=== PATIENT | female | born 1975 | race Caucasian/White ===

== ENCOUNTER 2019-10-16 18:09 | Observation (INO) ==
[2019-10-16] MEDS ORDERED: SODIUM CHLORIDE 0.9% 1000ML 1,000 ML IV ONE (18:48)
[2019-10-16 18:50] LABS: Basophils # (auto) 0.06 K/uL (0-0.2); Basophils % (auto) 0.8 %; Eosinophils # (auto) 0.43 K/uL (0-0.5); Eosinophils % (auto) 5.6 %; Hematocrit (blood only) 39.6 % (37-47); Hemoglobin 13.9 g/dL (12.0-16.0); Immature Granulocytes # (auto) 0.02 K/uL (0.00-0.02); Immature Granulocytes % (auto) 0.3 %; Lymphocytes # (auto) 2.61 K/uL (1.2-3.4); Lymphocytes % (auto) 33.7 %; Mean Corpuscular Hemoglobin 32.6 pg (25-34); Mean Corpuscular Hgb Conc 35.1 g/dL (32-36); Mean Platelet Volume 9.4 fL (7.4-10.4); Monocytes # (auto) 0.69 K/uL (0.11-0.59); Monocytes % (auto) 8.9 %; Neutrophils # (auto) 3.93 K/uL (1.4-6.5); Neutrophils % (auto) 50.7 %; Platelet Count 335 K/uL (130-400); RDW Coefficient of Variation 12.8 % (11.5-14.5); RDW Standard Deviation 43.2 fL (36.4-46.3); Red Blood Count 4.26 M/uL (4.2-5.4); White Blood Count 7.74 K/uL (4.8-10.8)
[2019-10-16 19:01] LABS: Partial Thromboplastin Time 26.8 Seconds (21.0-31.0)
[2019-10-16] MEDS ORDERED: OPTIRAY 320 125ml IV PRN (19:05)
--- NOTE | 2019-10-16 19:12 | CT Scan Report ---
CT angio head w con HISTORY: aphasia eval for cva TECHNIQUE: Multiaxial CT angiography of the head was performed IV contrast: None. Maximum intensit y projection images were also obtained. A dose lowering technique was utilized adhering to the princ iplRadha. COMPARISON: None. FINDINGS: There is no mass, hematoma, midline shift, or acute infarct. Visualized intracranial internet merchant al carotid arteries, distal vertebral arteries, and basilar artery are widely patent. There is no sig nificant stenosis, occlusion, or aneurysm seen within the bilateral ACAs, MCAs, or mirror inspector. IMPRESSION: No significant stenosis, occlusion, or aneurysm within the [place]. ACT 112: Negative or not required by law. The above report was generated using voice recognition software. It may contain grammatical, syntax or spelling errors. Electronically signed by: Stanton Justice M.D. 10/16/2019 7:10 PM
[2019-10-16 19:13] LABS: Alanine Aminotransferase 26 U/L (12-78); Albumin Level 4.6 gm/dl (3.4-5.0); Aspartate Aminotransferase 13 U/L (15-37); Blood Urea Nitrogen 14 mg/dl (7-18); Calcium 9.7 mg/dl (8.5-10.1); Carbon Dioxide 28 mmol/L (21-32); Chloride 104 mmol/L (98-107); Creatinine Clr Calc Pharmacy 78.9 ml/min; Est GFR (African American) 72.6; Est GFR (Non-African American) 62.6; Glucose 99 mg/dl (70-99); Potassium 3.3 mmol/L (3.5-5.1); Sodium 138 mmol/L (136-145)
--- NOTE | 2019-10-16 19:14 | CT Scan Report ---
CT head/brain wo con CT DOSE: HISTORY: Mental status change aphasia eval for cva TECHNIQUE: Multiaxial CT images of the head were performed without the use of intravenous contrast. A dose lowering technique was utilized adhering to the principles of ALARA. Comparison: None. Findings: The paranasal sinuses and mastoid air cells are clear. The calvarium and skull base are int act. The ventricles and sulci are within normal limits. There is no mass, hematoma, midline shift, or acute infarct. Impression: No acute intracranial abnormality. ACT 112: Negative or not required by law. The above report was generated using voice recognition software. It may contain grammatical, syntax or spelling errors. Electronically signed by: Stanton Justice M.D. 10/16/2019 7:12 PM
--- NOTE | 2019-10-16 19:15 | CT Scan Report ---
CT angio neck with con HISTORY: Mental status change aphasia eval for cva TECHNIQUE: Multiaxial CT angiography of the neck was performed IV contrast: None. All measurements w ere calculated based on NASCET criteria. Maximum intensity projection images were also obtained. A dose lowering technique was utilized adhering to the principles of ALARA. COMPARISON STUDY: None. FINDINGS: The aortic arch and proximal great vessels are widely patent. There is no significant sten osis, occlusion, or dissection identified within the bilateral common carotid, internal carotid, or v ertebral arteries. IMPRESSION: No significant stenosis, occlusion, or dissection identified within the carotid or vertebral arteries . ACT 112: Negative or not required by law. The above report was generated using voice recognition software. It may contain grammatical, syntax or spelling errors. Electronically signed by: Stanton Justice M.D. 10/16/2019 7:14 PM
[2019-10-16 19:18] LABS: Albumin Globulin Ratio 1.1 (0.9-2); Alkaline Phosphatase 65 U/L (45-117); Bilirubin,Total 0.4 mg/dl (0.2-1); Globulin 4.1 gm/dl (2.5-4.0); Total Protein 8.7 gm/dl (6.4-8.2); Troponin I < 0.015 ng/ml (0-0.045)
[2019-10-16 20:20] LABS: Amphetamines+Metham, Urine Neg (Neg); Barbiturates, Urine Neg (Neg); Benzodiazepine, Urine Neg (Neg); Cocaine, Urine Neg (Neg); MDMA (Ecstacy), Urine Neg (Neg); Methadone, Urine Neg (Neg); Opiate, Urine Neg (Neg); Phencyclidine, Urine Neg (Neg)
[2019-10-16 21:23] LABS: Acetaminophen 6 ug/ml (10-30); Salicylate < 1.7 mg/dl (2.8-20)
[2019-10-16] MEDS ORDERED: ONDANSETRON INJ 2 MG/ML 2 ML VIAL IV PRN (22:57)
[2019-10-16] MEDS ORDERED: ALBUTEROL HFA 8 GM INHALER INH PRN (22:57)
[2019-10-16] MEDS ORDERED: NITROGLYCERIN SL 0.4 MG/TAB TAB SL PRN (22:57)
[2019-10-16] MEDS ORDERED: POLYETHYLENE (MIRALAX) 17 GM PACK PO PRN (22:57)
[2019-10-16] MEDS ORDERED: ALPRAZolam 0.5 MG TABLET PO PRN (22:57)
[2019-10-16] MEDS ORDERED: SODIUM CHLORIDE 0.9% 1000ML 1,000 ML IV SCH (22:57)
[2019-10-16] MEDS ORDERED: POTASSIUM CHLORIDE 20 MEQ TABCR PO STA (22:57)
[2019-10-16] MEDS ORDERED: PHARMACIST DISCHARGE MED REC CONSULT PRN (22:57)
--- NOTE | 2019-10-16 23:46 | Emergency Department Note ---
Entered by Wendie Wallace acting as a scribe for History of Present Illness General Chief complaint: Altered Mental Status Stated complaint: SEES BLACK DOT INSTEAD OF VISION. SPEECH IMPAIRED Time Seen by Provider: 10/16/19 18:29 Source: patient and family (, daughter) History of Present Illness Onset (ago): hour(s) 2 Location: head (altered mental status) Pain Consistency: + other (worsening) Maximum Pain Intensity: 5 Associated symptoms: + headaches and + other (slurring her speech, confused, visual problems); no fever/chills Treatments prior to arrival: other (Tylenol for headache) The patient is a 43 year old F who presents to the Emergency Room with complaints of worsening altered mental status that started 2 hours ago. The HPI was provided by the patient, the patients , and the patients 14-year-old daughter. The patients states that the patient was perfectly fine in the morning. The patients daughter states that she got home from school around 4pm. She notes that when she got home, the patient was cooking. She adds that she had a conversation with the patient and the patient was making sense. She notes that the patient was complaining of a headache. The patient adds that her headache is located at the left-side of her head. The patients daughter states that the patient took some Tylenol and decided to sit on their couch. She adds that she went to her room and saw the patient, again, 30 minutes later. She notes that at 4:30pm, the patient was slurring her speech, confused, and was complaining of visual problems. She states that the patient was not making any sense. She adds that the patient was complaining of seeing black spots. The patient states that her vision is better now. The patient adds that she occasionally sees black spot with her headaches. She denies formally being diagnosed with migraines. She also denies experiencing any fevers. The patients states that the patient has a history of thyroid issues and occasional headaches. He denies that the patient is on any blood thinning medications. He adds that the patient has been sleeping a lot and been experiencing abdominal pain for the past couple of months. He notes that the patient had a cardiac stress test and a gallbladder US performed, on Wednesday, for these issues. He states that he does not think that the patient is depression. He adds that he does not think that the patient takes any drugs. He denies that the patient is suicidal. The HPI is limited due to AMS. Home Medications Home Medications Medication Instructions Recorded Confirmed Type acetaminophen [Tylenol Extra 1,000 mg PO QID PRN 10/16/19 10/16/19 History Strength] alprazolam 0.5 mg PO TID PRN 10/16/19 10/16/19 History citalopram 40 mg PO DAILY 10/16/19 10/16/19 History levothyroxine 75 mcg PO QAM 10/16/19 10/16/19 History loratadine 10 mg PO DAILY 10/16/19 10/16/19 History omeprazole 20 mg PO QAM 10/16/19 10/16/19 History trazodone 50 mg PO HS 10/16/19 10/16/19 History Allergies Allergy/AdvReac Type Severity Reaction Status Date / Time clarithromycin [From Biaxin] Allergy Unknown Unverified 10/16/19 20:20 clindamycin Allergy Unknown Unverified 10/16/19 20:19 Past Med/Surg History Medical History History of thyroid disorder Hx of headache Family History Other No significant family history Social History Preferred Language: Palestinian Communication Ability: Effective Human Services Program Specialist Required: No Beliefs That Will Affect Care: None Current Living Situation: Spouse and Family Other Information That Helps Us Care for You: No Feels Safe at Home: Yes Safety Concerns: Feels Safe At This Time Smoking Status: Current some day smoker Tobacco Type: cigarettes ; Cigarettes Per Day: 5 ; Hx Alcohol Use: Yes Alcohol type: beer Hx Substance Use: No Review of Systems See HPI for pertinent positives & negatives. The ROS is limited due to AMS. Physical Exam Vital Signs Vital Signs - 24 hr 10/16/19 18:13 10/16/19 18:48 10/16/19 19:01 Temperature 36.6 C Temperature Source Oral Pulse Rate 78 73 81 Pulse Rate from SpO2 Sensor Respiratory Rate 18 16 15 Respiratory Effort / Characteristics Non-Labored Spontaneous Respiratory Depth Normal Respiratory Pattern Regular Blood Pressure 139/92 146/86 H 144/84 H Blood Pressure Mean 107 103 94 Blood Pressure Position Sitting Pulse Oximetry 97 97 98 Oxygen Delivery Method Room Air Room Air Sepsis Recent Fever Within 48 Hours No Sepsis New/Unexplained Change in Mental Status No Sepsis Action Taken by Nursing No Action Required 10/16/19 19:15 10/16/19 19:30 10/16/19 19:45 Temperature Temperature Source Pulse Rate 62 65 66 Pulse Rate from SpO2 Sensor 63 67 Respiratory Rate 16 12 12 Respiratory Effort / Characteristics Respiratory Depth Respiratory Pattern Blood Pressure 143/79 H 136/88 144/81 H Blood Pressure Mean 92 110 105 Blood Pressure Position Pulse Oximetry 100 99 Oxygen Delivery Method Room Air Room Air Sepsis Recent Fever Within 48 Hours Sepsis New/Unexplained Change in Mental Status Sepsis Action Taken by Nursing 10/16/19 20:00 10/16/19 20:15 10/16/19 20:30 Temperature Temperature Source Pulse Rate 66 71 68 Pulse Rate from SpO2 Sensor Respiratory Rate 17 14 11 L Respiratory Effort / Characteristics Respiratory Depth Respiratory Pattern Blood Pressure 137/75 127/76 Blood Pressure Mean 81 103 Blood Pressure Position Pulse Oximetry Oxygen Delivery Method Sepsis Recent Fever Within 48 Hours Sepsis New/Unexplained Change in Mental Status Sepsis Action Taken by Nursing 10/16/19 20:45 10/16/19 21:00 10/16/19 21:15 Temperature Temperature Source Pulse Rate 68 71 91 H Pulse Rate from SpO2 Sensor Respiratory Rate 18 15 16 Respiratory Effort / Characteristics Respiratory Depth Respiratory Pattern Blood Pressure Blood Pressure Mean Blood Pressure Position Pulse Oximetry 96 97 97 Oxygen Delivery Method Room Air Room Air Room Air Sepsis Recent Fever Within 48 Hours Sepsis New/Unexplained Change in Mental Status Sepsis Action Taken by Nursing 10/16/19 21:30 10/16/19 21:45 10/16/19 21:47 Temperature Temperature Source Pulse Rate 72 70 77 Pulse Rate from SpO2 Sensor Respiratory Rate 15 17 18 Respiratory Effort / Characteristics Respiratory Depth Respiratory Pattern Blood Pressure 132/52 L Blood Pressure Mean 95 Blood Pressure Position Pulse Oximetry 98 96 99 Oxygen Delivery Method Room Air Room Air Room Air Sepsis Recent Fever Within 48 Hours Sepsis New/Unexplained Change in Mental Status Sepsis Action Taken by Nursing 10/16/19 21:48 10/16/19 22:00 10/16/19 22:01 Temperature Temperature Source Pulse Rate 67 70 70 Pulse Rate from SpO2 Sensor Respiratory Rate 19 19 12 Respiratory Effort / Characteristics Respiratory Depth Respiratory Pattern Blood Pressure 148/86 H Blood Pressure Mean 96 Blood Pressure Position Pulse Oximetry 98 97 96 Oxygen Delivery Method Room Air Room Air Room Air Sepsis Recent Fever Within 48 Hours Sepsis New/Unexplained Change in Mental Status Sepsis Action Taken by Nursing Constitutional: Vital signs reviewed. Eyes: Pupils are equal round reactive to light. Conjunctiva are noninjected. ENT: Pharynx is clear without erythema or exudate. Mucous membranes are moist. Neck supple without meningeal signs. Respiratory: Clear to auscultation bilaterally. Breath sounds are equal bilaterally. Cardiovascular: Regular rate and rhythm. No rubs or gallops. GI: Soft, nondistended and nontender. Bowel sounds are present. Musculoskeletal: No peripheral edema. No lower extremity tenderness. Integumentary: No cyanosis. Neurological: The patient is awake and alert. Cranial nerves II-XII are intact. Motor is 5 out of 5 all extremities. Sensation is intact to light touch all extremities. Answers some questions, slurring and mixing up words. No pronator drift. No limb ataxia. Psychiatric: Unable to assess. Course Course 1830: The patient was evaluated in room A3. A complete history and physical exam was performed. 1842: I reviewed the patient's case with Dr. Rose, [facility], [facility]. She states to give the patient something for her headache. She states that she will log in to see the patient. 2029: I re-checked the patient. She is significantly improved. Her speech is almost back to normal. She is not slurring her words. She had trouble naming some objects. She states that her headache is much better unless she turns her head a certain way. 2055: 1842: I reviewed the patient's case with Dr. Rose, [facility] [place] [place]. She states that she has not had chance to look at MRA due to having other stoke alerts. 2127: The patient is better but not at baseline. The patient is going to be admitted. I am paging Dr. Nicholson for admission. 2133: I reviewed the patient's case with Dr. Nicholson, [facility] Hospitalist. He will evaluate the patient for further management. Administered Medications Discontinued Medications Sodium Chloride (Nss 1000ml) 1,000 mls @ 999 mls/hr IV .Q1H1M ONE Stop: 10/16/19 19:48 Last Infusion: 10/16/19 20:06 Dose: 0 mls/hr Documented by: [id number] Admin: 10/16/19 19:03 Dose: 999 mls/hr Documented by: [id number] Ioversol (Optiray 320 125ml) 118 ml IV ONCE PRN PRN Reason: Interaction Checking Stop: 10/20/19 19:04 Last Admin: 10/16/19 19:05 Dose: 1 ml Documented by: [id number] Critical Care Time Total Critical Care Time: 35 I have personally spent 35 minutes of critical care time in the direct managemen t of this patient. This includes bedside care, interpretation of diagnostic studies, and testing, discussion with consultants, patient, and family members, and other required patient management activities. These minutes are in excess of all separately billable procedures. Medical Decision Making Differential Diagnosis Differential diagnosis includes: atypical migraine, intracranial mass, ICH, CVA, toxic shock syndrome Medical Records Attestation: I reviewed the patient's medical records. Home Medications Current Medication List: was personally reviewed by me Laboratory Data Attestation: I reviewed the patient's lab results. Result diagrams: 10/16/19 18:27 10/16/19 18:27 Lab Results 10/16/19 10/16/19 10/16/19 Range/Units 18:27 18:27 18:27 WBC 7.74 (4.8-10.8) K/uL RBC 4.26 (4.2-5.4) M/uL Hgb 13.9 (12.0-16.0) g/dL Hct 39.6 (37-47) % MCV 93.0 (80-100) fL MCH 32.6 (25-34) pg MCHC 35.1 (32-36) g/dL RDW Std Deviation 43.2 (36.4-46.3) fL RDW Coeff of Hazel 12.8 (11.5-14.5) % Plt Count 335 (130-400) K/uL MPV 9.4 (7.4-10.4) fL Immature Gran % (Auto) 0.3 % Neut % (Auto) 50.7 % Lymph % (Auto) 33.7 % [place] % (Auto) 8.9 % Eos % (Auto) 5.6 % Baso % (Auto) 0.8 % Immature Gran # (Auto) 0.02 (0.00-0.02) K/uL Neut # (Auto) 3.93 (1.4-6.5) K/uL Lymph # (Auto) 2.61 (1.2-3.4) K/uL [place] # (Auto) 0.69 H (0.11-0.59) K/uL Eos # (Auto) 0.43 (0-0.5) K/uL Baso # (Auto) 0.06 (0-0.2) K/uL PT 10.0 (9.0-12.0) Seconds INR 1.0 (0.9-1.1) APTT 26.8 (21.0-31.0) Seconds PTT Ratio 1.0 Sodium 138 (136-145) mmol/L Potassium 3.3 L (3.5-5.1) mmol/L Chloride 104 (98-107) mmol/L Carbon Dioxide 28 (21-32) mmol/L Anion Gap 6.0 (3-11) BUN 14 (7-18) mg/dl Creatinine 1.07 (0.6-1.2) mg/dl Est Cr Clr Drug Dosing 78.9 ml/min Est GFR ( Amer) 72.6 Est GFR (Non-Af Amer) 62.6 BUN/Creatinine Ratio 13.0 (10-20) Glucose 99 (70-99) mg/dl POC Glucose (70-99) mg/dl Calcium 9.7 (8.5-10.1) mg/dl Magnesium 2.0 (1.8-2.4) mg/dl Total Bilirubin 0.4 (0.2-1) mg/dl AST 13 L (15-37) U/L ALT 26 (12-78) U/L Alkaline Phosphatase 65 (45-117) U/L Troponin I < 0.015 (0-0.045) ng/ml Total Protein 8.7 H (6.4-8.2) gm/dl Albumin 4.6 (3.4-5.0) gm/dl Globulin 4.1 H (2.5-4.0) gm/dl Albumin/Globulin Ratio 1.1 (0.9-2) Salicylates (2.8-20) mg/dl Urine Opiates Screen (Neg) Ur Methadone, Qual (Neg) Acetaminophen (10-30) ug/ml Urine Barbiturates (Neg) Ur Phencyclidine (PCP) (Neg) U Amphetamin/Meth Scrn (Neg) MDMA (Ecstasy) Screen (Neg) U Benzodiazepines Scrn (Neg) Ur Cocaine Metabolite (Neg) U Marijuana (THC) Screen (Neg) Ethyl Alcohol mg/dL (0-3) mg/dl Blood Type Antibody Screen 10/16/19 10/16/19 10/16/19 Range/Units 18:33 18:49 19:53 WBC (4.8-10.8) K/uL RBC (4.2-5.4) M/uL Hgb (12.0-16.0) g/dL Hct (37-47) % MCV (80-100) fL MCH (25-34) pg MCHC (32-36) g/dL RDW Std Deviation (36.4-46.3) fL RDW Coeff of Hazel (11.5-14.5) % Plt Count (130-400) K/uL MPV (7.4-10.4) fL Immature Gran % (Auto) % Neut % (Auto) % Lymph % (Auto) % [place] % (Auto) % Eos % (Auto) % Baso % (Auto) % Immature Gran # (Auto) (0.00-0.02) K/uL Neut # (Auto) (1.4-6.5) K/uL Lymph # (Auto) (1.2-3.4) K/uL [place] # (Auto) (0.11-0.59) K/uL Eos # (Auto) (0-0.5) K/uL Baso # (Auto) (0-0.2) K/uL PT (9.0-12.0) Seconds INR (0.9-1.1) APTT (21.0-31.0) Seconds PTT Ratio Sodium (136-145) mmol/L Potassium (3.5-5.1) mmol/L Chloride (98-107) mmol/L Carbon Dioxide (21-32) mmol/L Anion Gap (3-11) BUN (7-18) mg/dl Creatinine (0.6-1.2) mg/dl Est Cr Clr Drug Dosing ml/min Est GFR ( Amer) Est GFR (Non-Af Amer) BUN/Creatinine Ratio (10-20) Glucose (70-99) mg/dl POC Glucose 116 H (70-99) mg/dl Calcium (8.5-10.1) mg/dl Magnesium (1.8-2.4) mg/dl Total Bilirubin (0.2-1) mg/dl AST (15-37) U/L ALT (12-78) U/L Alkaline Phosphatase (45-117) U/L Troponin I (0-0.045) ng/ml Total Protein (6.4-8.2) gm/dl Albumin (3.4-5.0) gm/dl Globulin (2.5-4.0) gm/dl Albumin/Globulin Ratio (0.9-2) Salicylates (2.8-20) mg/dl Urine Opiates Screen Neg (Neg) Ur Methadone, Qual Neg (Neg) Acetaminophen (10-30) ug/ml Urine Barbiturates Neg (Neg) Ur Phencyclidine (PCP) Neg (Neg) U Amphetamin/Meth Scrn Neg (Neg) MDMA (Ecstasy) Screen Neg (Neg) U Benzodiazepines Scrn Neg (Neg) Ur Cocaine Metabolite Neg (Neg) U Marijuana (THC) Screen Neg (Neg) Ethyl Alcohol mg/dL (0-3) mg/dl Blood Type O Positive Antibody Screen NEGATIVE 10/16/19 10/16/19 Range/Units 20:26 20:26 WBC (4.8-10.8) K/uL RBC (4.2-5.4) M/uL Hgb (12.0-16.0) g/dL Hct (37-47) % MCV (80-100) fL MCH (25-34) pg MCHC (32-36) g/dL RDW Std Deviation (36.4-46.3) fL RDW Coeff of Hazel (11.5-14.5) % Plt Count (130-400) K/uL MPV (7.4-10.4) fL Immature Gran % (Auto) % Neut % (Auto) % Lymph % (Auto) % [place] % (Auto) % Eos % (Auto) % Baso % (Auto) % Immature Gran # (Auto) (0.00-0.02) K/uL Neut # (Auto) (1.4-6.5) K/uL Lymph # (Auto) (1.2-3.4) K/uL [place] # (Auto) (0.11-0.59) K/uL Eos # (Auto) (0-0.5) K/uL Baso # (Auto) (0-0.2) K/uL PT (9.0-12.0) Seconds INR (0.9-1.1) APTT (21.0-31.0) Seconds PTT Ratio Sodium (136-145) mmol/L Potassium (3.5-5.1) mmol/L Chloride (98-107) mmol/L Carbon Dioxide (21-32) mmol/L Anion Gap (3-11) BUN (7-18) mg/dl Creatinine (0.6-1.2) mg/dl Est Cr Clr Drug Dosing ml/min Est GFR ( Amer) Est GFR (Non-Af Amer) BUN/Creatinine Ratio (10-20) Glucose (70-99) mg/dl POC Glucose (70-99) mg/dl Calcium (8.5-10.1) mg/dl Magnesium (1.8-2.4) mg/dl Total Bilirubin (0.2-1) mg/dl AST (15-37) U/L ALT (12-78) U/L Alkaline Phosphatase (45-117) U/L Troponin I (0-0.045) ng/ml Total Protein (6.4-8.2) gm/dl Albumin (3.4-5.0) gm/dl Globulin (2.5-4.0) gm/dl Albumin/Globulin Ratio (0.9-2) Salicylates < 1.7 L (2.8-20) mg/dl Urine Opiates Screen (Neg) Ur Methadone, Qual (Neg) Acetaminophen 6 L (10-30) ug/ml Urine Barbiturates (Neg) Ur Phencyclidine (PCP) (Neg) U Amphetamin/Meth Scrn (Neg) MDMA (Ecstasy) Screen (Neg) U Benzodiazepines Scrn (Neg) Ur Cocaine Metabolite (Neg) U Marijuana (THC) Screen (Neg) Ethyl Alcohol mg/dL < 3.0 (0-3) mg/dl Blood Type Antibody Screen Imaging Data Radiologist's Impression: Radiology results as stated below per my review and the radiologist's interpretation: CT head/brain wo con CT DOSE: HISTORY: Mental status change aphasia eval for cva TECHNIQUE: Multiaxial CT images of the head were performed without the use of intravenous contrast. A dose lowering technique was utilized adhering to the principles of ALARA. Comparison: None. Findings: The paranasal sinuses and mastoid air cells are clear. The calvarium and skull base are intact. The ventricles and sulci are within normal limits. There is no mass, hematoma, midline shift, or acute infarct. Impression: No acute intracranial abnormality. ACT 112: Negative or not required by law. The above report was generated using voice recognition software. It may contain grammatical, syntax or spelling errors. Electronically signed by: Stanton Justice M.D. 10/16/2019 7:[address] angio head w con HISTORY: aphasia eval for cva TECHNIQUE: Multiaxial CT angiography of the head was performed IV contrast: None. Maximum intensity projection images were also obtained. A dose lowering technique was utilized adhering to the principles of ALARA. COMPARISON: None. FINDINGS: There is no mass, hematoma, midline shift, or acute infarct. Visualized intracranial internal carotid arteries, distal vertebral arteries, and basilar artery are widely patent. There is no significant stenosis, occlusion, or aneurysm seen within the bilateral ACAs, MCAs, or township clerk. IMPRESSION: No significant stenosis, occlusion, or aneurysm within the [place]. ACT 112: Negative or not required by law. The above report was generated using voice recognition software. It may contain grammatical, syntax or spelling errors. Electronically signed by: Stanton Justice M.D. 10/16/2019 7:[address] angio neck with con HISTORY: Mental status change aphasia eval for cva TECHNIQUE: Multiaxial CT angiography of the neck was performed IV contrast: None. All measurements were calculated based on NASCET criteria. Maximum inte nsity projection images were also obtained. A dose lowering technique was utilized adhering to the principles of ALARA. COMPARISON STUDY: None. FINDINGS: The aortic arch and proximal great vessels are widely patent. There is no significant stenosis, occlusion, or dissection identified within the bilateral common carotid, internal carotid, or vertebral arteries. IMPRESSION: No significant stenosis, occlusion, or dissection identified within the carotid or vertebral arteries. ACT 112: Negative or not required by law. The above report was generated using voice recognition software. It may contain grammatical, syntax or spelling errors. Electronically signed by: Stanton Justice M.D. 10/16/2019 7:14 PM ECG Data Attestation: I personally reviewed and interpreted this ECG as follows: Indication: + altered mental status Rate (beats per minute): 74 Rhythm: + normal sinus ECG Intervals/blocks: no Prolonged QT ECG ST segments: no ST elevation ECG Findings: no PVCs and no Other (widening of QRS) Blood Pressure Blood Pressure Findings: Elevated blood pressure Blood Pressure Disposition: further management by hospitalist CHRIS Narrative I did evaluate the patient as noted above. She is presenting with strokelike sy mptoms starting at approximately 4:30 PM today according to her 14-year-old daughter. Her last known well, according to the same daughter, was 4 PM when she got home from school. On my examination she is slurring her words and having difficulty finding words. She has no other deficits. I did immediately call a stroke alert. IV access was established. The patient was placed on a continuous air hole driller. I did order a CT of the head and CT angiogram of the head and neck. I did review the images myself as well as the radiology report as described above. There is no acute abnormality. I did discuss the case with the [facility] stroke neurologist to assess the patient via telemedicine. I did order and personally review the patient's 12-lead EKG as described above. She has no dysrhythmia or acute ischemia. I did order a urine analysis. I did order and review the patient's blood work as noted in the electronic medical record. CBC is unremarkable without leukocytosis or anemia. Platelets are normal. Electrolytes show hypokalemia. Tox screen is negative. Alcohol is negative. On reassessment the patient has rapidly improving symptoms. She is not fully back to herself and still has some difficulty with her speech. I therefore did not feel IV TPA was indicated at this time. I did discuss the case with the [facility] neurologist and she agreed with my plan to hospitalize for further care and evaluation including MRI of the brain. The patient and her family were agreeable. I did discuss the case with hospitalist and disability case manager. Impression & Plan Stroke-like symptoms, Aphasia, Dysarthria, Headache, Acute hypokalemia Discharge Plan Visit Data *Final* Discharge Date/Time: 10/16/19 22:35 Chief Complaint: Altered Mental Status Stated Complaint: SEES BLACK DOT INSTEAD OF VISION. SPEECH IMPAIRED ED Provider: Paul Schmitt Discharge Problem: Stroke-like symptoms, Aphasia, Dysarthria, Headache, Acute hypokalemia Patient Disposition: Admitted As Inpatient Discharge Instructions Interventions: ED Discharge Assessment Last Done: 10/16/19 22:35 Discharge Problem: Headache Qualifiers: Headache type: unspecified Headache chronicity pattern: acute headache Intractability: not intractable Qualified Code(s): R51 - Headache The scribe's documentation has been prepared under my direction and personally reviewed by me in its entirety. I confirm that the note above accurately reflects all work, treatment, procedures, and medical decision making performed by me.
[2019-10-17] MEDS ORDERED: GADOBUTROL 65ML VIAL IV PRN (00:14)
--- NOTE | 2019-10-17 00:22 | History and Physical Report ---
DATE OF ADMISSION: 10/16/2019 CHIEF COMPLAINT: Stroke-like symptoms. HISTORY OF PRESENT ILLNESS: This is a 43-year-old female with past medical history significant for hypothyroidism, history of thyroiditis, asthma mild persistent; history of urinary incontinence, history of adjustment disorder with depression, mood, generalized anxiety disorder, tobacco abuse, presents with stroke-like symptoms. The patient says she had some blurred visions in noon and not able to concentrate. When her daughter came from school around 4 o'clock she was fine, talking fine, but suddenly she was not able to speak, though she was having difficulty speaking, dysarthria and she was brought in here and stroke alert was called. Initially when she came in, she could not talk much, but later symptoms improved, though she still has some mildly pressured speech. CT scan of the head and CTA of the head and neck unremarkable and she was deemed not a candidate for TPA. Currently resting comfortably and hemodynamically stable and alert and oriented. Family in the room. She also says that for the last few weeks she is having symptoms like lightheadedness. She cannot climb steps because she gets winded and short of breath and also feel like passing out and also a couple of weeks ago, she had left-sided chest pain with numbness of left hand, but she says she did not seek any help and she saw her family doctor with the chest pain and she had status post stress test on 10/13/2019 which was unremarkable with normal EF. Currently, denies any headache, no earache, no runny nose, no sore throat, no difficulty swallowing. No odynophagia, no cough, no fever, no chills, no chest pain. Currently, no shortness of breath, was nauseous earlier that is improved now. No abdominal pain, no diarrhea, no constipation. Normal bladder movements. No burning micturition. No rash. Currently resting comfortably and hemodynamically stable. ALLERGIES: CLARITHROMYCIN, CLINDAMYCIN. PAST MEDICAL HISTORY: As mentioned above. PAST SURGICAL HISTORY: , cervical colposcopy with cryocautery of cervix, dilatation and curettage, hysteroscopy, endometrial ablation, ligation of the oviducts. MEDICATIONS: The patient currently on Tylenol Extra Strength 1000 mg p.o. q.i.d. p.r.n., alprazolam 0.5 mg p.o. t.i.d. p.r.n., citalopram 40 mg p.o. daily, levothyroxine 75 mcg q.a.m., lortadine 10 mg p.o. daily, omeprazole 20 mg a.m., trazodone 50 mg p.o. at bedtime. FAMILY HISTORY: Significant for mother had thyroid disorder, eating disorder. Father has CHF. Sister has thyroid disorder. SOCIAL HISTORY: , smokes half pack a day for last 31 years. Alcohol occasional. No drug use. REVIEW OF SYMPTOMS: As per HPI. Rest of review of systems is negative. PHYSICAL EXAMINATION: GENERAL: The patient is of moderate build, not in acute distress. VITAL SIGNS: Temperature 36.6, pulse 77, respiratory rate 18, blood pressure 132/62, oxygen 99% on room air. HEENT: No pallor, no icterus. Pupils equal, round, reactive to light. NECK: No JVD, no neck masses, no carotid bruits. CARDIOVASCULAR: S1, S2 heard, regular rate and rhythm, no murmur, no gallop. RESPIRATORY SYSTEM: Normal AP diameter. No accessory muscle use. No wheezing, no crackles. ABDOMEN: Soft, bowel sounds present, nontender. No distention. CENTRAL NERVOUS SYSTEM: Cranial nerves II-XII grossly intact. Power 5/5 in all extremities. Sensation is intact. Position sense intact. No pronator drift. Babinski, negative. Coordination was normal. EXTREMITIES: No edema, no erythema. LABORATORY DATA: WBC 7.7, hemoglobin 13.9, hematocrit 39.6, platelets 335. PT 10, INR 1, APTT 26.8. Sodium 138, potassium 3.3, chloride 104, bicarbonate 28, BUN 14, creatinine 1.07, serum glucose 99, calcium 9.7, magnesium 2, total bilirubin 0.4, AST 13, ALT 26, alkaline phosphatase 65. Troponin I less than 0.015. Salicylate level less than 1.7, acetaminophen 6. IMAGING: CT of the head, no acute findings seen. CTA of the head and neck, no acute findings seen. ASSESSMENT AND PLAN: This 43-year-old female who presents with stroke-like symptoms. 1. Stroke-like symptoms, with dysarthria which is much improved. Initial workup with CT scan of the head and CTA of the head and neck are unremarkable, stroke alert was called and she was thought not to be candidate for TPA as her symptoms are improving and no findings seen on CAT scan. We will do the full stroke workup with MRI scan, echocardiogram. Monitor in tele floor. Speech evaluation, PT, OT evaluation. Consult Neurology in a.m. for further recommendations. 2. History of depression and anxiety. Continue home medication of Celexa, alprazolam p.r.n. 3. History of asthma, mild persistent on albuterol p.r.n., currently stable. 4. Hypothyroidism, on Synthroid. 5. Ongoing weakness with shortness of breath on exertion and climbing steps. The patient's stress echo was okay. We will monitor. 6. Deep venous thrombosis prophylaxis, sequential compression devices. DISPOSITION: Admit to tele floor. Expect to discharge home and follow with family doctor. Level 1 full code. MTDD
[2019-10-17] MEDS ORDERED: LEVOTHYROXINE SODIUM 75 MCG TABLET PO SCH (06:30)
--- NOTE | 2019-10-17 07:15 | Magnetic Resonance Report ---
MR brain wo/w con HISTORY: 43 years-old Female stroke like symptoms acutely altered mental status with strokelike symp toms COMPARISON: CTA of the head and neck 10/16/2019 TECHNIQUE: Multiplanar multisequence MRI of the brain was obtained both with and without the use of 8 .8 mL Gadavist FINDINGS: Educational Director localizer images demonstrate no gross extracranial abnormality. There is no restricted diffusio n to suggest acute or subacute infarct. Midline structures including the corpus callosum, brainstem, optic chiasm, pituitary and pineal glands appear unremarkable on the sagittal T1 series. There is no cerebellar tonsillar herniation. No acute intracranial hemorrhage, midline shift, abnormal extra-axia l collection, hydrocephalus or intracranial mass. No significant T2/FLAIR signal abnormalities of the brain parenchyma. There is no abnormal intra-axial or extra-axial enhancement. Major flow voids at t he level of the skull base appear patent. Trace mastoid effusions. Mild mucosal thickening of the par anasal sinuses. Orbits are unremarkable. The skull and soft tissues are within normal limits. IMPRESSION: 1. No acute intracranial abnormality, specifically there is no evidence of acute or subacute infarct. 2. No abnormal enhancement. ACT 112: Negative or not required by law. The above report was generated using voice recognition software. It may contain grammatical, syntax o r spelling errors. Electronically signed by: Gustavo Dior M.D. 10/17/2019 7:13 AM
[2019-10-17 07:29] LABS: Basophils # (auto) 0.05 K/uL (0-0.2); Basophils % (auto) 1.1 %; Eosinophils # (auto) 0.35 K/uL (0-0.5); Hematocrit (blood only) 35.9 % (37-47); Hemoglobin 12.3 g/dL (12.0-16.0); Immature Granulocytes # (auto) 0.01 K/uL (0.00-0.02); Immature Granulocytes % (auto) 0.2 %; Lymphocytes # (auto) 1.47 K/uL (1.2-3.4); Lymphocytes % (auto) 33.8 %; Mean Corpuscular Hemoglobin 31.9 pg (25-34); Mean Corpuscular Hgb Conc 34.3 g/dL (32-36); Mean Platelet Volume 9.2 fL (7.4-10.4); Monocytes # (auto) 0.46 K/uL (0.11-0.59); Monocytes % (auto) 10.6 %; Neutrophils # (auto) 2.01 K/uL (1.4-6.5); Neutrophils % (auto) 46.3 %; Platelet Count 252 K/uL (130-400); RDW Coefficient of Variation 12.9 % (11.5-14.5); RDW Standard Deviation 43.7 fL (36.4-46.3); Red Blood Count 3.86 M/uL (4.2-5.4); White Blood Count 4.35 K/uL (4.8-10.8)
[2019-10-17 07:49] LABS: Estimated Average Glucose 103 mg/dl; Hemoglobin A1C 5.2 % (4.5-5.6)
[2019-10-17 08:05] LABS: BUN Creatinine Ratio 17.7 (10-20); Est GFR (African American) 109.8; Est GFR (Non-African American) 94.7; Potassium 4.1 mmol/L (3.5-5.1)
[2019-10-17] MEDS: ACETAMINOPHEN 325 MG TAB PO PRN ×2 (08:37→15:37)
[2019-10-17] MEDS ORDERED: ASPIRIN 81 MG ECTAB PO SCH (09:00)
[2019-10-17] MEDS ORDERED: PANTOprazole 40 MG TAB PO SCH (09:00)
[2019-10-17] MEDS ORDERED: LORATADINE 10 MG TAB PO SCH (09:00)
[2019-10-17] MEDS ORDERED: CITALOPRAM 40 MG TAB PO SCH (09:00)
--- NOTE | 2019-10-17 14:56 | Neurology Consultation ---
Date of Consultation October 17, 2019 Assessment & Plan (1) Stroke-like symptoms: 1. MRI with no acute findings 2. CTA head and neck- no vascular abnormalities 3. TTE- intraatrial shunt- size not defined 4. optimize HTN, HLD, DM LDL <70 5. smoking cessation needed 6. no history of migraine although may have been complex migraine 7. aspirin 81 mg recommended cardiology for PFO ok to discharge when medically stable (2) Dysarthria: (3) Headache: Supervising Physician Co-Signing Physician Notes Patient was seen and examined. Family at bedside. Reports feeling better. Has ~1 headache per month which she medicates with NSAID. Reports severe headache yesterday with nausea, vision changes, dizziness, and difficult speaking. No history of similar symptoms. Denies menopause. No focal neuro deficits noted on my examine. MRI reviewed and appears normal. I do not believe this was a stroke or TIA. Symptoms suggestive of possible migraine with brainstem aura. Recommend patient keep headache diary. Ok to discharge from neurology standpoint. Follow up with neurology as needed. History of Present Illness Reason for Consultation: stroke like symptoms Requesting Physician: Khoa Moser MD Attending Physician: Khoa Moser MD History of Present Illness Jasmina is a 43 year old female with PMH- hypothyroidism, thyroiditis, asthma mild, urinary incontinence, adjustment disorder with depression, mood, generalized anxiety disorder, tobacco abuse. She had some blurred visions at noon and not able to concentrate. When her daughter came from school around 4 o'clock she was fine, talking fine, but suddenly she was not able to speak, though she was having difficulty speaking, dysarthria and she presents at [facility] with stroke alert because she couldn't talk at presentation but that resol jose r. no tPA given. She cannot climb steps because she gets winded and short of breath and also feel like passing out and also a couple of weeks ago, she had left-sided chest pain with numbness of left hand. She saw her family doctor with the chest pain and she had status post stress test on 10/13/2019 which was unremarkable with normal EF. She also states she had a headache after the blurred vision with started on the right and then went to the left. She also had some right sided arm and leg weakness which has resolved. she states she still has the headache on the right side of her head which she states is about a 4. denies CP, SOB, abdominal pain, one sided weakness, numbness tingling, current vision changes, N, V, falls. vision check scheduled for October. Allergies Allergy/AdvReac Type Severity Reaction Status Date / Time clarithromycin [From Biaxin] Allergy Unknown Unverified 10/16/19 20:20 clindamycin Allergy Unknown Unverified 10/16/19 20:19 Home Medications Home Medications Medication Instructions Recorded Confirmed Type acetaminophen [Tylenol Extra 1,000 mg PO QID PRN 10/16/19 10/16/19 History Strength] alprazolam 0.5 mg PO TID PRN 10/16/19 10/16/19 History citalopram 40 mg PO DAILY 10/16/19 10/16/19 History levothyroxine 75 mcg PO QAM 10/16/19 10/16/19 History loratadine 10 mg PO DAILY 10/16/19 10/16/19 History omeprazole 20 mg PO QAM 10/16/19 10/16/19 History trazodone 50 mg PO HS 10/16/19 10/16/19 History aspirin [Ecotrin Low Strength] 81 mg PO QAM 30 Days #30 tab 10/17/19 Rx Patient History Medical History History of thyroid disorder Hx of headache Family History Other No significant family history Social History Preferred Language: Slovenian Communication Ability: Effective 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: No Beliefs That Will Affect Care: None Current Living Situation: Spouse and Family Other Information That Helps Us Care for You: No Feels Safe at Home: Yes Safety Concerns: Feels Safe At This Time Smoking Status: Current some day smoker Tobacco Type: cigarettes ; Cigarettes Per Day: 5 ; Hx Alcohol Use: Yes Alcohol type: beer Hx Substance Use: No Physical Exam Physical Exam: Physical Exam: Constitutional: appearance over nourished, healthy and normal Ears, Nose, Mouth and Throat: mucous membranes moist, no injection and skin normal, eyes normal Cardiovascular: normal S-1 and S-2 and regular rate and rhythm Respiratory: clear to auscultation (CTA) Musculoskeletal: no peripheral edema and good distal pulses Skin: no stigmata of neurocutaneous disease noted and normal and intact Eyes: extraocular muscles intact (EOMI) and pupils equal, round and reactive to light (PERRL) NEUROLOGIC EXAMINATION: Mental status: Alert and interactive Oriented to full date and location Oriented to person Speech fluent with no evidence of aphasia Cranial Nerves smile and eye brow raise symmetric Reflexes: Deep tendon reflexes were symmetrical and graded 2/5. down going toes Sensory: to light or cool touch Coordination: finger to nose no bipass, rapid hand movements heel to coats intact Gait/Stance: Posture normal. gait no assessed Motor: Negative for pronator drift of out stretched arms with eyes closed. Strength: hand loom overhauler biceps triceps bilaterally 5/5, hip flex plantar flex ext 5/5 bilaterally Results & Data Vital Signs (Past 12 Hours) Vital Signs Temp Pulse Pulse Resp BP BP Pulse Ox 10/17/19 11:35 36.8 C 71 18 120/74 95 10/17/19 08:00 58 L 10/17/19 07:57 36.7 C 61 18 118/77 95 10/17/19 04:02 36.5 C 63 18 119/79 96 Laboratory Results Abnormal lab results 10/16/19 10/16/19 10/16/19 Range/Units 18:27 18:27 18:33 WBC (4.8-10.8) K/uL RBC (4.2-5.4) M/uL Hct (37-47) % [place] # (Auto) 0.69 H (0.11-0.59) K/uL Potassium 3.3 L (3.5-5.1) mmol/L Chloride (98-107) mmol/L Glucose (70-99) mg/dl POC Glucose 116 H (70-99) mg/dl AST 13 L (15-37) U/L Total Protein 8.7 H (6.4-8.2) gm/dl Globulin 4.1 H (2.5-4.0) gm/dl Triglycerides (0-150) mg/dl Cholesterol (0-200) mg/dl Salicylates (2.8-20) mg/dl Acetaminophen (10-30) ug/ml 10/16/19 10/17/19 10/17/19 Range/Units 20:26 07:10 07:10 WBC 4.35 L (4.8-10.8) K/uL RBC 3.86 L (4.2-5.4) M/uL Hct 35.9 L (37-47) % [place] # (Auto) (0.11-0.59) K/uL Potassium (3.5-5.1) mmol/L Chloride 110 H (98-107) mmol/L Glucose 116 H (70-99) mg/dl POC Glucose (70-99) mg/dl AST (15-37) U/L Total Protein (6.4-8.2) gm/dl Globulin (2.5-4.0) gm/dl Triglycerides 194 H (0-150) mg/dl Cholesterol 206 H (0-200) mg/dl Salicylates < 1.7 L (2.8-20) mg/dl Acetaminophen 6 L (10-30) ug/ml Diagnostic Findings MRI brain-No acute intracranial abnormality, specifically there is no evidence of acute or subacute infarct. No abnormal enhancement. CTA neck-No significant stenosis, occlusion, or dissection identified within the carotid or vertebral arteries. CTA head-No significant stenosis, occlusion, or aneurysm within the [place]. CT head-No acute intracranial abnormality. TTE- 60-65% intraatrial shunt (size not defined) (1) Headache Headache chronicity pattern: acute headache Headache type: unspecified Intractability: not intractable Qualified Code(s): R51 - Headache
[2019-10-17] MEDS ORDERED: STROKE PATIENT DISCHARGE STA (16:15)
--- NOTE | 2019-10-17 16:23 | Hospitalist Progress Note ---
Date of Service October 17, 2019 Assessment & Plan (1) Migraine headache with aura: Concern initially for Stroke-like symptoms, however neurology Dr. Monge assesses that main diagnosis is MIGRAINE HEADACHE WITH AURA Patent Foramen [place]vale -"HISTORY OF PRESENT ILLNESS: This is a 43-year-old female with past medical history significant for hypothyroidism, history of thyroiditis, asthma mild persistent; history of urinary incontinence, history of adjustment disorder with depression, mood, generalized anxiety disorder, tobacco abuse, presents with stroke-like symptoms. The patient says she had some blurred visions in noon and not able to concentrate. When her daughter came from school around 4 o'clock she was fine, talking fine, but suddenly she was not able to speak, though she was having difficulty speaking, dysarthria and she was brought in here and stroke alert was called. Initially when she came in, she could not talk much, but later symptoms improved, though she still has some mildly pressured speech. CT scan of the head and CTA of the head and neck unremarkable and she was deemed not a candidate for TPA. Currently resting comfortably and hemodynamically stable and alert and oriented. Family in the room. She also says that for the last few weeks she is having symptoms like lightheadedness. She cannot climb steps because she gets winded and short of breath and also feel like passing out and also a couple of weeks ago, she had left-sided chest pain with numbness of left hand, but she says she did not seek any help and she saw her family doctor with the chest pain and she had status post stress test on 10/13/2019 which was unremarkable with normal EF." -headache is improved. no visual changes currently. no photophobia currently. no dizziness. no shortness of breath. no chest pain. no abdominal pain. no vomiting; as per neurology Dr. Monge assesses that main diagnosis is MIGRAINE HEADACHE WITH AURA Hypokalemia (resolved) Hypothyroidism History of depression and anxiety (on medications) (2) PFO (patent foramen ovale): -Patent Foramen [place]vale - while neurology service does not assess that patient had a stroke based on normal brain imagine and clinical symptoms that she presented for, a patient foramen ovale may be a low risk for embolism and patient is planning podiatric surgery so aspirin to be continued -medication of aspirin 81 mg daily sent electronically to [facility] [address], [place] History of depression and anxiety -Continue home medication of Celexa, alprazolam p.r.n. Hypothyroidism -Continue home dose levothyroxine History of asthma, mild persistent -no respiratory exacerbations at this time on albuterol p.r.n., currently stable. Subjective headache is improved. no visual changes currently. no photophobia currently. no dizziness. no shortness of breath. no chest pain. no abdominal pain. no vomiting Review of Systems Review of Systems: All systems reviewed & are unremarkable except as noted in HPI & below Physical Exam Constitutional: WD/WN, vitals as above Eyes: PERRL, conjunctivae normal, anicteric sclerae EOM intact bilaterally ENMT: external ear and nose normal, oropharynx normal Neck: trachea midline, no thyromegaly normal visual inspection Cardiovascular: RRR, no murmur, no edema Gastrointestinal (Abdomen): normal bowel sounds, soft, nontender, no hepatosplenomegaly Musculoskeletal: Head/Neck/Chest: normocephalic and head atraumatic Neurologic: PERRL, EOMI, accommodation nl, no face palsy, no dysarthria CN's II-XI intact bilaterally Psychiatric: A+Ox3, euthymic affect Results & Data Vital Signs (Past 12 Hours) Vital Signs Temp Pulse Pulse Resp BP BP Pulse Ox 10/17/19 15:04 36.6 C 62 16 126/74 96 10/17/19 11:35 36.8 C 71 18 120/74 95 10/17/19 08:00 58 L 10/17/19 07:57 36.7 C 61 18 118/77 95
--- NOTE | 2019-10-17 16:33 | Discharge Summary ---
Date of Service October 17, 2019 Admission HPI Per Admitting Provider DATE OF ADMISSION: 10/16/2019 CHIEF COMPLAINT: Stroke-like symptoms. HISTORY OF PRESENT ILLNESS: This is a 43-year-old female with past medical history significant for hypothyroidism, history of thyroiditis, asthma mild persistent; history of urinary incontinence, history of adjustment disorder with depression, mood, generalized anxiety disorder, tobacco abuse, presents with stroke-like symptoms. The patient says she had some blurred visions in noon and not able to concentrate. When her daughter came from school around 4 o'clock she was fine, talking fine, but suddenly she was not able to speak, though she was having difficulty speaking, dysarthria and she was brought in here and stroke alert was called. Initially when she came in, she could not talk much, but later symptoms improved, though she still has some mildly pressured speech. CT scan of the head and CTA of the head and neck unremarkable and she was deemed not a candidate for TPA. Currently resting comfortably and hemodynamically stable and alert and oriented. Family in the room. She also says that for the last few weeks she is having symptoms like lightheadedness. She cannot climb steps because she gets winded and short of breath and also feel like passing out and also a couple of weeks ago, she had left-sided chest pain with numbness of left hand, but she says she did not seek any help and she saw her family doctor with the chest pain and she had status post stress test on 10/13/2019 which was unremarkable with normal EF. Currently, denies any headache, no earache, no runny nose, no sore throat, no difficulty swallowing. No odynophagia, no cough, no fever, no chills, no chest pain. Currently, no shortness of breath, was nauseous earlier that is improved now. No abdominal pain, no diarrhea, no constipation. Normal bladder movements. No burning micturition. No rash. Currently resting comfortably and hemodynamically stable. ALLERGIES: CLARITHROMYCIN, CLINDAMYCIN. PAST MEDICAL HISTORY: As mentioned above. PAST SURGICAL HISTORY: , cervical colposcopy with cryocautery of cervix, dilatation and curettage, hysteroscopy, endometrial ablation, ligation of the oviducts. MEDICATIONS: The patient currently on Tylenol Extra Strength 1000 mg p.o. q.i.d. p.r.n., alprazolam 0.5 mg p.o. t.i.d. p.r.n., citalopram 40 mg p.o. daily, levothyroxine 75 mcg q.a.m., lortadine 10 mg p.o. daily, omeprazole 20 mg a.m., trazodone 50 mg p.o. at bedtime. FAMILY HISTORY: Significant for mother had thyroid disorder, eating disorder. Father has CHF. Sister has thyroid disorder. SOCIAL HISTORY: , smokes half pack a day for last 31 years. Alcohol occasional. No drug use. REVIEW OF SYMPTOMS: As per HPI. Rest of review of systems is negative. Admission Exam Per Admitting Provider GENERAL: The patient is of moderate build, not in acute distress. VITAL SIGNS: Temperature 36.6, pulse 77, respiratory rate 18, blood pressure 132/62, oxygen 99% on room air. HEENT: No pallor, no icterus. Pupils equal, round, reactive to light. NECK: No JVD, no neck masses, no carotid bruits. CARDIOVASCULAR: S1, S2 heard, regular rate and rhythm, no murmur, no gallop. RESPIRATORY SYSTEM: Normal AP diameter. No accessory muscle use. No wheezing, no crackles. ABDOMEN: Soft, bowel sounds present, nontender. No distention. CENTRAL NERVOUS SYSTEM: Cranial nerves II-XII grossly intact. Power 5/5 in all extremities. Sensation is intact. Position sense intact. No pronator drift. Babinski, negative. Coordination was normal. EXTREMITIES: No edema, no erythema. Principal Diagnosis Concern initially for Stroke-like symptoms, however neurology Dr. Mariposa mesa ssesses that main diagnosis is MIGRAINE HEADACHE WITH AURA Patent Foramen Ovale Hypokalemia (resolved) Hypothyroidism History of depression and anxiety (on medications) Discharge Exam Constitutional WD/WN, vitals as above Eyes PERRL, conjunctivae normal, anicteric sclerae EOM intact bilaterally ENMT external ear and nose normal, oropharynx normal Neck trachea midline, no thyromegaly normal visual inspection Cardiovascular RRR, no murmur, no edema Gastrointestinal (Abdomen) normal bowel sounds, soft, nontender, no hepatosplenomegaly Musculoskeletal Head/Neck/Chest: normocephalic and head atraumatic Neurologic PERRL, EOMI, accommodation nl, no face palsy, no dysarthria CN's II-XI intact bilaterally Psychiatric A+Ox3, euthymic affect Discharge Data Allergies Allergy/AdvReac Type Severity Reaction Status Date / Time clarithromycin [From Biaxin] Allergy Unknown Unverified 10/16/19 20:20 clindamycin Allergy Unknown Unverified 10/16/19 20:19 Consultations 10/16/19 21:32 ED Decision to Admit Stat 10/16/19 22:57 Consult Case Management - Discharge Planning Routine Consult Case Management - Discharge Planning Routine 10/17/19 08:00 Consult Neurology Routine Ordered Studies 10/16/19 18:38 CT head/brain wo con Stat 10/16/19 18:39 CT angio head w con Stat CT angio neck with con Stat 10/16/19 22:57 MR brain wo/w con Urgent Hospital Course (1) Migraine headache with aura: Concern initially for Stroke-like symptoms, however neurology Dr. Monge assesses that main diagnosis is MIGRAINE HEADACHE WITH AURA Patent Foramen Ovale -"HISTORY OF PRESENT ILLNESS: This is a 43-year-old female with past medical history significant for hypothyroidism, history of thyroiditis, asthma mild persistent; history of urinary incontinence, history of adjustment disorder with depression, mood, generalized anxiety disorder, tobacco abuse, presents with stroke-like symptoms. The patient says she had some blurred visions in noon and not able to concentrate. When her daughter came from school around 4 o'clock she was fine, talking fine, but suddenly she was not able to speak, though she was having difficulty speaking, dysarthria and she was brought in here and stroke alert was called. Initially when she came in, she could not talk much, but later symptoms improved, though she still has some mildly pressured speech. CT scan of the head and CTA of the head and neck unremarkable and she was deemed not a candidate for TPA. Currently resting comfortably and hemodynamically stable and alert and oriented. Family in the room. She also says that for the last few weeks she is having symptoms like lightheadedness. She cannot climb steps because she gets winded and short of breath and also feel like passing out and also a couple of weeks ago, she had left-sided chest pain with numbness of left hand, but she says she did not seek any help and she saw her family doctor with the chest pain and she had status post stress test on 10/13/2019 which was unremarkable with normal EF." -headache is improved. no visual changes currently. no photophobia currently. no dizziness. no shortness of breath. no chest pain. no abdominal pain. no vomiting; as per neurology Dr. Monge assesses that main diagnosis is MIGRAINE HEADACHE WITH AURA Hypokalemia (resolved) Hypothyroidism History of depression and anxiety (on medications) (2) PFO (patent foramen ovale): -Patent Foramen Ovale - while neurology service does not assess that patient had a stroke based on normal brain imagine and clinical symptoms that she presented for, a patient foramen ovale may be a low risk for embolism and patient is planning podiatric surgery so aspirin to be continued -medication of aspirin 81 mg daily sent electronically to [facility] [place] History of depression and anxiety -Continue home medication of Celexa, alprazolam p.r.n. Hypothyroidism -Continue home dose levothyroxine History of asthma, mild persistent -no respiratory exacerbations at this time on albuterol p.r.n., currently stable. Total Time Total Time Spent Total Time Spent (In Minutes): 40 minutes Total Time Includes: Examination of the Patient, Discharge Planning, Medication Reconciliation and Communication With Other Providers Discharge Plan Discharge Items Patient Disposition: Home - Self-Care Reason For Visit: STROKE LIKE SYMPTOMS Discharge Diagnosis: Concern initially for Stroke-like symptoms, however neurology Dr. Monge assesses that main diagnosis is MIGRAINE HEADACHE WITH AURA Patent Foramen Ovale Hypokalemia (resolved) Hypothyroidism History of depression and anxiety (on medications) Condition on Discharge: Good Activity: Resume your previous activity Non-emergency contact: Primary Care Provider and Specialist Call non-emergency contact if: you have any medication questions Follow-up/Referrals: Brandy Landaverde MD [Primary Care Provider] - Diet: Heart Healthy Addtl Attending Provider Instructions: Concern initially for Stroke-like symptoms, however neurology assesses that main diagnosis is MIGRAINE HEADACHE WITH AURA Patent Foramen Ovale - while neurology service does not assess that patient had a stroke based on normal brain imagine and clinical symptoms that she presented for, a patient foramen ovale may be a low risk for embolism and patient is planning podiatric surgery so aspirin to be continued medication of aspirin 81 mg daily sent electronically to [facility] [place] continue other home medications for depression, anxiety, and hypothyroidism 10/19/2019: planned outpatient Procedure EXCISION TUMOR LEG ANKLE SUBCUTANEOUS (but patient messaged to cancel appointment) 10/23/2019 11:20 AM Provider Brandy Pearson MD Department Internal Medicine [facility] 10/26/2019 3:15 PM Provider Chana Duval DPM Department Podiatry [facility] Pending Studies at Discharge: No Stand-Alone Forms: My [facility], Smoking Cessation Medications and DC Order Prescriptions: New aspirin [Ecotrin Low Strength] 81 mg Tablet,Delayed Release (Dr/Ec) 81 mg PO QAM 30 Days Qty: 30 RF: 0 Continued levothyroxine 75 mcg tablet 75 mcg PO QAM RF: 0 omeprazole 20 mg capsule,delayed release(DR/EC) 20 mg PO QAM RF: 0 loratadine 10 mg tablet 10 mg PO DAILY RF: 0 trazodone 50 mg tablet 50 mg PO HS RF: 0 citalopram 40 mg tablet 40 mg PO DAILY RF: 0 alprazolam 0.5 mg tablet 0.5 mg PO TID PRN (Reason: Anxiety) RF: 0 acetaminophen [Tylenol Extra Strength] 500 mg Tablet 1,000 mg PO QID PRN (Reason: Pain) RF: 0 Discharge Orders: Discharge Order (Routine); Ordered 10/17/19 Ordered By: Khoa Moser Admission Data Admit Date/Time: 10/16/19 22:12 Attending Provider: Khoa Moser Admit Provider: Kel Nicholson Primary Care Provider: Brandy Landaverde Other Providers: Kel Nicholson ; Lucero Das ; Caden Jensen Kathleen ; Lux Jimenez ; Khoa Moser
[2019-10-17] MEDS ORDERED: TRAZODONE HCL 50 MG TAB PO SCH (21:00)
--- NOTE | 2019-10-18 17:25 | Electrocardiogram Report ---
Test Reason : Blood Pressure : / mmHG Vent. Rate : 074 BPM Atrial Rate : 074 BPM P-R Int : 114 ms QRS Dur : 082 ms QT Int : 398 ms P-R-T Axes : 000 059 047 degrees QTc Int : 441 ms Normal sinus rhythm Normal ECG No previous ECGs available Confirmed by Ke Brunner ([id number]) on 10/18/2019 5:25:16 PM Referred By: REFERRED SELF Confirmed By:Ron Brunner
--- NOTE | 2019-10-18 17:40 | Electrocardiogram Report ---
Test Reason : Blood Pressure : / mmHG Vent. Rate : 080 BPM Atrial Rate : 080 BPM P-R Int : 146 ms QRS Dur : 076 ms QT Int : 372 ms P-R-T Axes : 070 059 041 degrees QTc Int : 429 ms Normal sinus rhythm Normal ECG When compared with ECG of 16-OCT-2019 18:24, (unconfirmed) No significant change was found Confirmed by Ke Brunner ([id number]) on 10/18/2019 5:40:09 PM Referred By: REFERRED SELF Confirmed By:Ron Brunner
== END 2019-10-17 17:30 | disposition home or self-care (01) | DRG 103 ==
LOC: ED 18:09 → SUATTDRO 22:12 → INTOOBSV 22:12 → 2S 22:12